=== PATIENT | female | born 1980 | race Caucasian/White ===

== ENCOUNTER 2021-08-03 13:29 | Emergency (ER) | payer OTHER, BC ==
[2021-08-03] MEDS ORDERED: morphine CARPU-JECT 4 MG/1 ML DISP.SYRIN IVPUSH ONE (13:32)
[2021-08-03] MEDS ORDERED: morphine SULFATE 4 MG/ML VIAL ONE (13:40)
[2021-08-03 13:55] VITALS: BP 118/82; PULSE 62; TEMP 98; BMI 23.4
== END 2021-08-03 17:06 | disposition home or self-care (01) ==
LOC: JER 13:29
PROC: 3E033NZ Introduction of Analgesics, Hypnotics, Sedatives into Peripheral Vein, Percutaneous Approach (ICD-10-PCS; principal; 2021-08-03)
DX: M25.562 Pain in left knee (principal); S99.912A Unspecified injury of left ankle, initial encounter; W01.0XXA Fall on same level from slipping, tripping and stumbling without subsequent striking against object, initial encounter; Y92.9 Unspecified place or not applicable
CPT/HCPCS: 73562-TC-LT-FY; 73610-TC-LT-FY; 73630-TC-LT; 99284-25